=== PATIENT | female | born 1955 | race Caucasian/White ===

== ENCOUNTER 2025-01-18 09:50 | Day surgery (SDC) | payer MEDICARE, SELFPAY ==
--- NOTE | 2025-01-17 15:30 | PAT.ANE_ITS ---
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 When Was Last Pacemaker Check QUESTION #4 FULL TEXT: You/Your Family Experience fever (hyperthermia) with Anesthesia Last Oral Intake Last Oral intake: Last Oral Intake NPO since Meds taken in AM with sips of water? Meds patient instructed to take am of surgery PONV PONV - allied health instructor: PONV - allied health instructor Female Yes 01/12/25 10:10 HX of Motion Sickness No 01/12/25 10:10 HX of N/V After Surgery No 01/12/25 10:10 Non-Smoker Yes 01/12/25 10:10 Duration of Surgery greater Yes 01/12/25 10:10 than 60 minutes Number of Risk Factors 3 01/12/25 10:10 PONV Score Moderate Risk 01/12/25 10:10 Respiratory Assessment Respiratory Assessment - allied health instructor: Respiratory Tract Infection Hx - allied health instructor Hx Respiratory Tract Infection No 01/12/25 10:10 STOP Sleep Apnea STOP Sleep Apnea - allied health instructor: STOP Sleep Apnea - allied health instructor Hx Hypertension No 01/12/25 10:10 Hx Sleep Apnea No 01/12/25 10:10 CPAP BIPAP Do you snore loudly (louder No 01/12/25 10:10 than talking or can be heard Do you often feel tired/ No 01/12/25 10:10 fatigued/ sleepy during daytime? Has anyone observed you stop No 01/12/25 10:10 breathing during sleep? STOP Results Negative 01/12/25 10:10 QUESTION #5 FULL TEXT : Do you snore loudly (louder than talking or can be heard through closed doors)? 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 Specify any problems Hx of Preganancy in last 3 No 01/12/25 10:10 Months Nurse Filling Out Transfusion [email or web address] 01/12/25 10:10 & Questions: Date: 01/12/25 01/12/25 10:10 Time: 10:12 01/12/25 10:10 Patient unable to answer at this time (ie. confused, unrespo /Reproduction History /Reproductive History - allied health instructor: /Reproductive Hx- allied health instructor Hx Now No 01/12/25 10:10 Gestational Age (in weeks): EDC: Hx Hx Para Hx Section SAB No 01/12/25 10:10 Active Medications Active Medications: Current Medications Generic Name Dose Route Start Last Admin Trade Name Freq PRN Reason Stop Dose Admin Cefazolin Sodium 2 gm/ Sodium 110 mls @ 150 mls/hr 01/18/25 11:20 Chloride IV 01/18/25 12:03 INTRAOP ONE PFSH Medical History Wears glasses Arthritis Non-smoker Home Medications ?Medication ?Instructions ?Recorded ?Last Taken ?Type cholecalciferol (vitamin D3) 125 125 mcg PO DAILY 05/31 Unknown History mcg (5,000 unit) tablet (Vitamin D3) Allergy/AdvReac Type Severity Reaction Status Date / Time No Known Allergies Allergy Verified 01/12/25 10:07 Surgical History (Updated 01/12/25 @ 10:10 by Kiara Mena) History of colonoscopy History of arthroscopy of right knee Social History Smoking Status: Never smoker Audit: Pertinent Findings Pertinent Findings EKG Perinent findings: 01/16/2025. Sinus rhythm. Abnormal R wave progression, late transition. Left ventricular hypertrophy. Compared to 2022, left anterior fascicular block is no longer seen. Recommendation Anesthesia Recommendation Anesthesia recommendation: OPTIMIZED for anesthesia
[2025-01-18] VITALS (8 sets, daily range): BP systolic 115–134; BP diastolic 52–70; PULSE 58–72; RESP 16–18; TEMP 36.6–37.2; O2SAT 96–99; BMI 27.5
[2025-01-18] MEDS: Lactated Ringers 1,000 ML 15 ML IV (10:31)
--- NOTE | 2025-01-18 10:34 | PRE.ANES_ITS ---
ASA Classification* ASA Classification ASA Classification: 2 Assessment & Plan Anesthesia* Anesthesia Assessment Anesthesia Assessment: Discussed sedation and/or anesthesia options, risks, benefits, and alternatives with patient/parents/legal guardian/POA. Questions invited. The patient/parents/legal guardian/POA seems to understand and agrees to proceed with anesthesia plan. Reviewed the physical assessment, medical history, allergy history and patient home medications list prior to surgery/procedure/anesthetic and documented any changes. Performed airway and anesthesia risk assessments. Anesthesia Type Anesthesia Type: General and Block (post-operative analgesia ) History Source History Obtained from:: Patient and Chart Anesthesia Focused Assessment* Temperature: 97.8 F Pulse Rate: 66 Blood Pressure: 134/70 Respiratory Rate: 18 Pulse Ox: 98 Oxygen Delivery Method: Room Air Airway Assessment Mouth opens: >3 cm Mallampati Score: II Teeth Condition: Intact Focused Labs Anesthesia Preop lab: CBC WBC 7.1 k/mm3 (4.4-11.0) 06/02/13 08:42 06/02/13 RBC 4.49 M/mm3 (4.2-5.4) 06/02/13 08:42 06/02/13 Hgb 13.1 g/dl (12.0-15.0) 06/02/13 08:42 06/02/13 Hct 40.9 % (37-47) 06/02/13 08:42 06/02/13 Plt Count 147 K/mm3 (150-450) L 06/02/13 08:42 06/02/13 CHEMISTRY Potassium 4.4 mmol/L (3.5-5.1) 06/02/13 08:42 06/02/13 Sodium 145 mmol/L (136-145) 06/02/13 08:42 06/02/13 BUN 16 mg/dL (7-18) 06/02/13 08:42 06/02/13 Creatinine 0.8 mg/dL (0.6-1.0) 06/02/13 08:42 06/02/13 Glucose 79 mg/dL (70-110) 06/02/13 08:42 06/02/13 COAG Lab additional comments: NEw labs in paper chart reviewed Pre-Assessment Diagnosis/Proposed Procedure Planned Operative Procedure(s): (L) ORIF, Ankle Anesthesia History 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 When Was Last Pacemaker Check QUESTION #4 FULL TEXT: You/Your Family Experience fever (hyperthermia) with Anesthesia Last Oral Intake Last Oral intake: Last Oral Intake NPO since 00:00 01/18/25 10:17 Meds taken in AM with sips of water? 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 - parasitology teacher Female Yes 01/12/25 10:10 HX of Motion Sickness No 01/12/25 10:10 HX of N/V After Surgery No 01/12/25 10:10 Non-Smoker Yes 01/12/25 10:10 Duration of Surgery greater Yes 01/12/25 10:10 than 60 minutes Number of Risk Factors 3 01/12/25 10:10 PONV Score Moderate Risk 01/12/25 10:10 Height & Weight Height & Weight: Anesthesia: Height & Weight Height 5 ft 5 in 01/18/25 10:17 Weight: 75 kg 01/18/25 10:17 Body Mass Index (BMI) 27.5 01/18/25 10:17 Respiratory Assessment Respiratory Assessment - parasitology teacher: Respiratory Tract Infection Hx - parasitology teacher Hx Respiratory Tract Infection No 01/12/25 10:10 STOP Sleep Apnea STOP Sleep Apnea - parasitology teacher: STOP Sleep Apnea - parasitology teacher Hx Hypertension No 01/12/25 10:10 Hx Sleep Apnea No 01/12/25 10:10 CPAP BIPAP Do you snore loudly (louder No 01/12/25 10:10 than talking or can be heard Do you often feel tired/ No 01/12/25 10:10 fatigued/ sleepy during daytime? Has anyone observed you stop No 01/12/25 10:10 breathing during sleep? STOP Results Negative 01/12/25 10:10 QUESTION #5 FULL TEXT : Do you snore loudly (louder than talking or can be heard through closed doors)? 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 Specify any problems Hx of Preganancy in last 3 No 01/12/25 10:10 Months Nurse Filling Out Transfusion [email or web address] 01/12/25 10:10 & Questions: Date: 01/12/25 01/12/25 10:10 Time: 10:12 01/12/25 10:10 Patient unable to answer at this time (ie. confused, unrespo /Reproduction History /Reproductive History - parasitology teacher: /Reproductive Hx- parasitology teacher Hx Now No 01/12/25 10:10 Gestational Age (in weeks): EDC: Hx Hx Para Hx Section SAB No 01/12/25 10:10 Active Medications Active Medications: Current Medications Generic Name Dose Route Start Last Admin Trade Name Freq PRN Reason Stop Dose Admin Cefazolin Sodium 2 gm/ Sodium 110 mls @ 150 mls/hr 01/18/25 11:20 Chloride IV 01/18/25 12:03 INTRAOP ONE Lactated Ringer's 1,000 mls @ 15 mls/hr 01/18/25 10:15 01/18/25 10:31 IV 15 mls/hr .Q48H ANTIONE Administration PFSH Medical History Wears glasses Arthritis Non-smoker Home Medications ?Medication ?Instructions ?Recorded ?Last Taken ?Type cholecalciferol (vitamin D3) 125 125 mcg PO DAILY 05/3101/04/25 History mcg (5,000 unit) tablet (Vitamin D3) Allergy/AdvReac Type Severity Reaction Status Date / Time No Known Allergies Allergy Verified 01/18/25 10:16 Surgical History History of colonoscopy History of arthroscopy of right knee Social History Smoking Status: Never smoker Addt'l Information Additional Findings: NEW EKG NSR Review of Systems (Anesthesia) ROS Narrative System reviewed and no additional complaints, except as documented. Physical Exam Const alert and oriented x3 Resp normal respiratory effort and normal air movement Cardio regular rate and regular rhythm Neuro oriented x3 and moves all extremities
[2025-01-18] MEDS: Cefazolin 2 GM in 0.9% Normal Saline (100mL Bag) 100 ML IV (11:21)
--- NOTE | 2025-01-18 11:35 | RAD_ITS ---
PROCEDURE: ANKLE 2 VIEWS 01/18/2025 REASON FOR EXAM: ANKLE ORIF TECHNIQUE: Fluoroscopy with 9 spot images FINDINGS: Fluoroscopy time 30.1 seconds Cumulative dose 1.59 mGy ORIF medial malleolus with cannulated screw and Bbeeto wire. Lateral plate and screws and cancellous screw. Tract is seen across the distal tibia and fibula. Hardware appears anatomic and intact. Please see operative report for further detail. RAD/Ankle 2 Views IMPRESSION: Fluoroscopy as above. Reading Location: [id number]
--- NOTE | 2025-01-18 13:19 | OP.PCM_ITS ---
Operative Report (Standard) Operative Information Date of Procedure: 01/18/25 Pre-Operative Diagnosis: Left ankle trimalleolar fracture Post-Operative Diagnosis: Left ankle trimalleolar fracture Surgery/Procedure Performed: 1. Open reduction internal fixation left ankle medial and lateral malleoli 2. Open reduction internal fixation left ankle syndesmosis electric installer: Yes Olericulture Teacher: Marla Lewis Tasks completed by seed analysis laboratory assistant: Opening & closing, Dissecting tissue, Implanting device and Hemostasis: Electrocautery Type of Anesthesia: General/Regional RN Documented Start/Stop Times: Operation Date: 01/18/25 11:20 Case Time Into Pre-Op 01/18/25 10:01 Anesthesia Start 01/18/25 11:21 Into Room 01/18/25 11:21 Procedure Start 01/18/25 11:47 Procedure End 01/18/25 12:57 Anesthesia End 01/18/25 13:03 Out of Room 01/18/25 13:03 Into Recovery 01/18/25 13:05 Procedure Start Time: 11:47 Procedure Stop Time: 12:57 Select all DRAINS/GRAFTS/IMPLANTS that apply: Implanted device Implanted device details: Arthrex titanium 7 hole third tubular plate, 4.0 mm partially-threaded cancellous screw, 1.35 mm K wire Estimated Blood Loss: 25 cc Specimen collected: No Description of surgery: Patient was seen in preoperative holding area. They were identified by name, medical record number, date of . The operative extremity was marked with a surgical marker. We confirmed informed consent with the patient and all questions were answered to her satisfaction. In the preoperative holding area, a popliteal block and adductor canal block was administered by the anesthesia staff. At time of the procedure, patient was brought to the operative suite and positioned supine on a standard operating table. All bony prominences were well-padded. General anesthesia was administered. After adequate anesthesia, a well-padded pneumatic tourniquet was applied to the left upper thigh. A large bump was placed in the patient's left hip. The left lower extremity was elevated on bath blankets for fluoroscopic imaging and access to the limb during surgery. We secured this with tape as well as the nonoperative extremity. We then performed a timeout with all parties in attendance and agree with the side, site, operation to be performed. No concerns were voiced and elected to proceed. 2 g Ancef Ancef was administered prior to incision by the anesthesia staff. We then prepped and draped the operative extremity using a ChloraPrep. While stabilizing the ankle, the operative extremity was exsanguinated with an E smarch bandage. Tourniquet was inflated to 250 mmHg, which remained elevated for approximately 35 minutes. Incision was planned over the lateral malleolus and distal fibular shaft centered over the level of the fracture. Skin was sharply incised with a 15 blade scalpel. Superficial bleeders were cauterized with Bovie cautery. We then bluntly dissected to the level of the fascia. Fascia was opened with Bovie cautery. We examined closely for the superficial peroneal nerve which was not encountered throughout surgery. We bluntly dissected down to the level of the periosteum. Hohmann retractors were placed after fracture was encountered as well as the fibula. Periosteum was elevated at the level of the fracture approximately 2 to 3 mm. A [id number] reduction tenaculum was used to reapproximate the fracture site with excellent anatomic reduction. We then prepared for a lag screw for fixation. We first planned our lag screw perpendicular to the fracture site anterior superior to posterior inferior. We overdrilled the near cortex with a 3.0 mm drill bit. We then withdrew the drill bit and drilled the far cortex with a 2.0 mm drill bit. We then measured and placed an appropriately sized lag by technique 3.0 mm cortical screw with excellent compression across the fracture site. Reduction tenaculum was removed with excellent security at the fracture site. We then se lected our plate on the back table. I selected a 7 hole third tubular plate to act as a neutralization plate. 2 unicortical screws were placed distal to the fracture site and 3 bicortical screws proximal. Fracture was stable at this time. I turned my attention medially. Standard approach with longitudinal incision the medial malleolus was performed. Crossing vessels were cauterized. Entrapp ed periosteum was debrided. Point reduction clamp was used to achieve an anatomic reduction. 2 parallel K wires were placed at the tip of the medial malleolus confirmed on orthogonal fluoroscopy. I drilled the near cortex and 2 screws were placed with excellent compression. Clamp was removed. The anterior screw was noted to be very close to the medial shoulder of the joint. There was concerned that the screw head would impinge on the medial talar dome. I elected to remove the screw and instead place a K wire which was trimmed and bent and then impacted into the bone to achieve the good rotational stability. The fracture was stable at this time. I then stressed the syndesmosis. I did not appreciate gross gapping in syndesmosis however with the avulsion fracture of the PITFL noted on CT scan, elected to proceed with tight rope fixation to indirectly fix the posterior malleolus. Tight rope was then placed in the appropriate screw holes of the lateral plate. I drilled parallel to the plafond and with the ankle in neutral dorsiflexion. Tight rope was then placed and flipped. Sutures were sequentially tightened. Posterior malleolus was well reduced and appeared stable to stressing on orthogonal fluoroscopy. Final fluoroscopic images were obtained. Tourniquet deflated and wounds irrigated. Fascia was reapproximated over the lateral plate with interrupted [id number] ght 2-0 Vicryl suture. Dermis was reapproximated buried 2-0 Vicryl suture. Skin was closed in interrupted horizontal mattress fashion with a 3-0 nylon suture. Bulky sterile compression dressing was applied as well as a 3 sided AO type short leg fiberglass splint in maximal dorsiflexion. Patient was awakened from anesthesia and safely explained the operative suite. She was transferred to her gurney and subsequently to PACU in stable condition. She tolerated the procedure well without apparent complication. Need for skilled certified physician assistant: Marla Lewis PA-C was critical to the outcome of the case. During the course of the procedure the physician certified physician assistant played a vital role. Her intimate knowledge of my steps in the procedure aided in safe and expedient completion of the procedure. The PA played a vital role in positioning particularly in obtaining the appropriate positioning. The PA was also vital in the retraction of soft tissues during the exposure and protecting vital structures. The PA was also vital and obtaining fracture reduction and assisting with hardware placement. She also played a vital role in closure and splint application with my direct supervision. Post Operative Plan: Weightbearing: Nonweightbearing operative extremity x 4 weeks, progressive weightbearing in the boot in 4 weeks Antibiotics: 2 x 1 dose preoperatively DVT Prophylaxis: Aspirin 81 mg twice daily for 6 weeks postoperatively Tate: None Dressing: Maintain splint, keep it clean dry and intact until follow-up X-Rays: 2 weeks postop in the office in splint Pain Medication: Oxycodone Rx upon discharge, multimodal Tylenol and ibuprofen Follow-up: 2 weeks post-operatively in the office Surgical Findings: Trimalleolar fracture, stable following final fixation Complications Complications: No Admit VTE Documentation VTE Present on Admission: No VTE Mechan Device Prophylaxis: SCD's VTE Pharm Prophylaxis ordered?: Yes
[2025-01-18] MEDS: Ketorolac 15 MG/ML Vial IV (13:20)
--- NOTE | 2025-01-18 13:43 | PCM.POST.ANE ---
Anesthesia: Postop Eval I Current Vital Signs Temperature: 97.8 F Pulse Rate: 66 Blood Pressure: 115/52 Respiratory Rate: 16 Pulse Ox: 97 Oxygen Delivery Method: Room Air Assessment Airway patent: Yes Spontaneous unlabored respirations: Yes Mental status: Awake and Calm nausea: No Vomiting: No Anesthesia Complication: No Fluid Hydration Crystalloid volume administer (ml): 1,500 Total IV fluid infused: 1,500 Progress Note Anesthesia document: Postop Eval 1 completed: Yes
--- NOTE | 2025-01-18 14:36 | POSTOPAN2_ITS ---
Anesthesia Postop Eval I Sum Postop Eval Completion status Anesthesia document: Postop Eval 1 completed: Yes Anesthesia Postop Eval I Summary Anesthesia Postop Eval I Summary: Anesthesia Postop Eval I: Assessment Summary Airway patent Yes 01/18/25 13:44 [email or web address] Spontaneous unlabored Yes 01/18/25 13:44 [email or web address] respirations Mental status Awake,Calm 01/18/25 13:44 [email or web address] nausea No 01/18/25 13:44 [email or web address] Vomiting No 01/18/25 13:44 [email or web address] Anesthesia Postop Eval I: Fluid Summary Crystalloid volume administer 1,500 01/18/25 13:44 [email or web address] (ml) Colloids volume administered ( ml) Blood Product volume administered (ml) Total IV fluid infused 1,500 01/18/25 13:44 [email or web address] Anesthesia Postop Eval I: Summary Notes Anesthesia Complication No 01/18/25 13:44 [email or web address] Anesthesia Complication Comment: Post-operative progress note Anesthesia: Postop Eval II Evaluation Mental status: Awake Pain Level: 2 nausea: No Vomiting: No Complications Anesthesia Complication: No
--- NOTE | 2025-01-18 14:36 | PCM.POSTANE2 ---
Anesthesia Postop Eval I Sum Postop Eval Completion status Anesthesia document: Postop Eval 1 completed: Yes Anesthesia Postop Eval I Summary Anesthesia Postop Eval I Summary: Anesthesia Postop Eval I: Assessment Summary Airway patent Yes 01/18/25 13:44 [email or web address] Spontaneous unlabored Yes 01/18/25 13:44 [email or web address] [email or web address] respirations Mental status Awake,Calm 01/18/25 13:44 [email or web address] [email or web address] nausea No 01/18/25 13:44 BONE [email or web address] Vomiting No 01/18/25 13:44 [email or web address] Anesthesia Postop Eval I: Fluid Summary Crystalloid volume administer 1,500 01/18/25 13:44 [email or web address] (ml) Colloids volume administered ( ml) Blood Product volume administered (ml) Total IV fluid infused 1,500 01/18/25 13:44 [email or web address] Anesthesia Postop Eval I: Summary Notes Anesthesia Complication No 01/18/25 13:44 [email or web address] Anesthesia Complication Comment: Post-operative progress note Anesthesia: Postop Eval II Evaluation Mental status: Awake Pain Level: 2 nausea: No Vomiting: No Complications Anesthesia Complication: No
== END 2025-01-18 14:45 | disposition home or self-care (01) ==
PROVIDERS: PCP Family Medicine; Referring Provider Student in an Organized Health Care Education/Training Program; Visit Provider Student in an Organized Health Care Education/Training Program
PROC: (CPT 27822; principal; 2025-01-18 11:00)
DX: S82.852A Displaced trimalleolar fracture of left lower leg, initial encounter for closed fracture (principal); S93.432A Sprain of tibiofibular ligament of left ankle, initial encounter; W10.9XXA Fall (on) (from) unspecified stairs and steps, initial encounter; Y92.009 Unspecified place in unspecified non-institutional (private) residence as the place of occurrence of the external cause
CPT/HCPCS: 27822; 27829; 01480; 64447; 64445; 73600; 76000; C1713; J2405